=== PATIENT | female | born 1940 | race African-American/Black ===

== ENCOUNTER 2017-01-06 05:41 | Day surgery (SDC) | payer MEDICARE, OTHER ==
[~2017-01-06] VITALS: Ht 172.7 cm; Wt 114.3 kg
[2017-01-06] MEDS ORDERED: LACTATED RINGERS 1,000 ML IV SCH (06:40)
[2017-01-06 06:59] LABS: BASOPHILS % 0.4 % (0.0-2.0); EOSINOPHILS % 0.8 % (0.0-5.0); HEMATOCRIT. 39.9 % (36.0-48.0); HEMOGLOBIN. 13.4 g/dL (12.0-16.0); LYMPHOCYTES % 43.1 % (20.0-50.0); MEAN CORPUSCULAR HEMOGLOBIN 29.8 pg (28.0-32.0); MEAN CORPUSCULAR VOLUME 88.9 fL (81.0-99.0); MEAN PLATELET VOLUME 7.6 fl (7.4-10.4); MONOCYTES % 8.1 % (2.0-8.0); NEUTROPHILS % 47.6 % (40.0-76.0); PLATELET 292 x1000/uL (130-400); RED BLOOD CELL COUNT 4.48 mill/uL (4.2-5.4); RED CELL DISTRIBUTION WIDTH 14.4 % (11.6-14.6)
[2017-01-06 07:06] LABS: CARBON DIOXIDE 29 mEq/L (21-32); CHLORIDE 102 mEq/L (98-107)
[2017-01-06] MEDS ORDERED: MIDAZOLAM HCL 2 MG/2 ML VIAL ONE (07:30)
[2017-01-06] MEDS ORDERED: FENTANYL CITRATE/PF 50MCG/ML 2ML VIAL ONE (07:30)
[2017-01-06] MEDS ORDERED: LIDOCAINE HCL 1% 20ML VIAL (Pyxis) INJ ONE (08:01)
[2017-01-06] MEDS ORDERED: ONDANSETRON HCL 4MG/2ML VIAL ONE (08:01)
[2017-01-06] MEDS ORDERED: DEXAMETHASONE 4MG/ML 1ML VIAL ONE (08:01)
[2017-01-06] MEDS ORDERED: PROPOFOL 200MG/20ML VIAL IV ONE (08:01)
[2017-01-06] MEDS ORDERED: LABETALOL HCL 20MG/4ML CARPUJECT IV PRN (08:15)
[2017-01-06] MEDS ORDERED: ONDANSETRON HCL 4MG/2ML VIAL IV PRN (08:15)
[2017-01-06] MEDS ORDERED: MEPERIDINE HCL/PF 25MG/ML CPJ IV PRN (08:15)
[2017-01-06] MEDS ORDERED: HYDROMORPHONE HCL/PF 2MG/ML CPJ IV PRN (08:15)
[2017-01-06] MEDS ORDERED: MULT-1146 PO (08:31)
[2017-01-06] MEDS ORDERED: METO25TA6 PO (08:31)
[2017-01-06] MEDS ORDERED: UBID30CA10 PO (08:31)
[2017-01-06] MEDS ORDERED: AMLO2.5T45 PO (08:31)
[2017-01-06] MEDS ORDERED: ASPI-1159 PO (08:31)
[2017-01-06] MEDS ORDERED: VIT500LI PO (08:31)
[2017-01-06] MEDS ORDERED: GARL200T PO (08:31)
[2017-01-06] MEDS ORDERED: CHOL400T15 PO (08:31)
[2017-01-06] MEDS ORDERED: ACETAMINOPHEN 650MG/20.3ML UDC PEG PRN (09:00)
== END 2017-01-06 10:25 | disposition home or self-care (01) ==
LOC: OR 05:41
PROVIDERS: ATTEND Obstetrics & Gynecology Obstetrics
DX: C54.1 Malignant neoplasm of endometrium (principal); Z88.0 Allergy status to penicillin; Z78.0 Asymptomatic menopausal state; Z88.1 Allergy status to other antibiotic agents; Z98.890 Other specified postprocedural states; Z80.9 Family history of malignant neoplasm, unspecified; I83.90 Asymptomatic varicose veins of unspecified lower extremity; R26.2 Difficulty in walking, not elsewhere classified; E66.01 Morbid (severe) obesity due to excess calories; I10 Essential (primary) hypertension; G51.0 Bell's palsy; J45.909 Unspecified asthma, uncomplicated
CPT/HCPCS: 36415; 58558; 80048; 85025; 88305; 93005; J1100; J2250; J2405; J3010; J3490; J7120; J2704

== ENCOUNTER 2020-05-31 20:57 | Inpatient (IN) | payer MEDICARE, MEDICAID ==
[~2020-05-31] VITALS: Ht 172.7 cm; Wt 113.6 kg
[~2020-05-31 20:57] MED LIST: AMLO2.5T45 PO; ASPI-1497 PO; CHOL400T15 PO; GARL200T PO; METO25TA6 PO; MULT-1146 PO; UBID30CA10 PO; VIT500LI PO
[2020-05-31] MEDS ORDERED: MORPHINE SULFATE 4 MG/ML CPJ (NOT FOR IM USE) IV PRN (23:30)
[2020-06-01 00:02] LABS: BASOPHILS % 0.4 % (0.0-2.0); EOSINOPHILS % 0.2 % (0.0-5.0); HEMATOCRIT. 38.3 % (36.0-48.0); HEMOGLOBIN. 12.9 g/dL (12.0-16.0); LYMPHOCYTES % 8.9 % (20.0-50.0); MEAN CORPUSCULAR HEMOGLOBIN 30.7 pg (28.0-32.0); MEAN CORPUSCULAR VOLUME 90.8 fL (81.0-99.0); MEAN PLATELET VOLUME 7.6 fl (7.4-10.4); MONOCYTES % 5.5 % (2.0-8.0); PLATELET 222 x1000/uL (130-400); RED BLOOD CELL COUNT 4.22 mill/uL (4.2-5.4); RED CELL DISTRIBUTION WIDTH 14.9 % (11.6-14.6)
[2020-06-01 00:08] LABS: CHLORIDE 103 mEq/L (98-107)
[2020-06-01 00:10] LABS: PROTHROMBIN TIME 10.6 sec (9.6-11.0)
[2020-06-01] MEDS ORDERED: KETOROLAC 15MG/ML VIAL IV ONE (01:30)
[2020-06-01] MEDS: TRAMADOL 50MG TABLET PO PRN ×2 (06:29→13:19)
[2020-06-01] MEDS ORDERED: CLONIDINE 0.1MG TABLET PO PRN (08:45)
[2020-06-01] MEDS ORDERED: GUAIFENESIN 200MG/10ML SUGAR FREE UDC PO PRN (08:45)
[2020-06-01] MEDS ORDERED: MAGNESIUM/ALUMINUM HYDROXIDE/SIMETHICONE 30ML UDC PO PRN (08:45)
[2020-06-01] MEDS ORDERED: DIPHENHYDRAMINE 50MG/ML VIAL IV PRN (08:45)
[2020-06-01] MEDS ORDERED: LORAZEPAM 2MG/ML CPJ IV PRN (08:45)
[2020-06-01] MEDS ORDERED: ONDANSETRON HCL 4MG/2ML INJ IV PRN (08:45)
[2020-06-01] MEDS ORDERED: ENOXAPARIN 40MG/0.4ML SYR SUBCUT SCH (08:45)
[2020-06-01] MEDS ORDERED: ACETAMINOPHEN 325MG TABLET PO PRN (08:45)
[2020-06-01] MEDS ORDERED: IPRATROPIUM/ALBUTEROL 0.5-3(2.5)MG/3ML NEB NEB PRN (08:45)
[2020-06-01] MEDS ORDERED: DOCUSATE SODIUM 100MG CAPSULE PO PRN (08:45)
[2020-06-01] MEDS ORDERED: HYDROMORPHONE HCL/PF 2MG/ML CPJ IV PRN (08:45)
[2020-06-01] MEDS ORDERED: DEXT 5%/0.45% NACL 1000ML 1,000 ML IV SCH (09:00)
[2020-06-01] MEDS ORDERED: NA PHOS,M-B/NA PHOS,DI-BA ENEMA 118ML PR PRN (09:00)
[2020-06-01 11:30] VITALS: BP 138/67
[2020-06-01 12:00] VITALS: BP 138/67
[2020-06-01] MEDS: HYDRALAZINE HCL 50MG TABLET PO SCH (13:11)
[2020-06-01] MEDS: ENOXAPARIN 30MG/0.3ML SYR SUBCUT SCH ×2 (13:13→21:55)
[2020-06-01] MEDS ORDERED: ALBUTEROL (0.083%) 2.5MG/3ML NEB HHN SCH (14:00)
[2020-06-01 16:00] VITALS: BP 134/59
[2020-06-01] MEDS ORDERED: ALBUTEROL 6.7GM HFA INHALER ORI ONE (17:00)
[2020-06-01 17:22] LABS: CHLORIDE 102 mEq/L (98-107)
[2020-06-01 20:00] VITALS: BP 144/63
[2020-06-01] MEDS: DEXT 5%/0.45% NACL 1000ML 1,000 ML IV SCH (23:14)
[2020-06-02] VITALS: BP 125/62
[2020-06-02] MEDS: TRAMADOL 50MG TABLET PO PRN (01:15)
[2020-06-02 04:00] VITALS: BP 129/56
[2020-06-02 06:25] LABS: BASOPHILS % 0.4 % (0.0-2.0); EOSINOPHILS % 0.4 % (0.0-5.0); HEMATOCRIT. 32.5 % (36.0-48.0); LYMPHOCYTES % 21.7 % (20.0-50.0); MEAN CORPUSCULAR HEMOGLOBIN 31.2 pg (28.0-32.0); MEAN CORPUSCULAR VOLUME 92.4 fL (81.0-99.0); MEAN PLATELET VOLUME 7.6 fl (7.4-10.4); MONOCYTES % 10.5 % (2.0-8.0); PLATELET 205 x1000/uL (130-400); RED BLOOD CELL COUNT 3.51 mill/uL (4.2-5.4); RED CELL DISTRIBUTION WIDTH 14.7 % (11.6-14.6)
[2020-06-02 06:44] LABS: CHLORIDE 101 mEq/L (98-107)
[2020-06-02 06:51] LABS: LDL CHOLESTEROL 60 mg/dL (5-100)
[2020-06-02 06:52] LABS: HDL CHOLESTEROL 68 mg/dL (40-59)
[2020-06-02 06:53] LABS: T4 FREE 1.15 ng/dL (0.76-1.46)
[2020-06-02] MEDS ORDERED: VANCOMYCIN HCL 1 GM/VIAL ONE (07:29)
[2020-06-02] MEDS ORDERED: BUPIVACAINE HCL/PF 0.25% (2.5MG/ML) 10ML ONE (07:29)
[2020-06-02] MEDS ORDERED: HYDROMORPHONE HCL/PF 2MG/ML (OR) ONE (07:45)
[2020-06-02] MEDS ORDERED: GLYCOPYRROLATE 0.2 MG/ML 2ML VIAL ONE (07:51)
[2020-06-02] MEDS ORDERED: DEXAMETHASONE 4MG/ML 1ML VIAL ONE (08:13)
[2020-06-02] MEDS ORDERED: CEFAZOLIN SODIUM 1000MG/VIAL ONE (08:13)
[2020-06-02] MEDS ORDERED: EPHEDRINE SULFATE 50MG/ML VIAL ONE (08:37)
[2020-06-02] MEDS: ENOXAPARIN 30MG/0.3ML SYR SUBCUT SCH ×2 (09:00→20:56)
[2020-06-02] MEDS: HYDRALAZINE HCL 50MG TABLET PO SCH (09:00)
[2020-06-02] MEDS ORDERED: ONDANSETRON HCL 4MG/2ML INJ IV PRN (09:45)
[2020-06-02] MEDS ORDERED: MEPERIDINE HCL/PF 25MG/ML CPJ IV PRN (09:45)
[2020-06-02] MEDS ORDERED: CEFAZOLIN 2,000 MG in DEXT 5% WATER 100 ML IV SCH (09:45)
[2020-06-02] MEDS ORDERED: HYDROMORPHONE HCL/PF 2MG/ML CPJ IV PRN (09:45)
[2020-06-02] MEDS ORDERED: LABETALOL 5MG/ML SYR 20 MG/4 ML SYRINGE IV PRN (09:45)
[2020-06-02] MEDS ORDERED: HYDROCODONE/ACETAMINOPHEN 10/325MG TABLET PO PRN (14:23)
[2020-06-02] MEDS: CEFAZOLIN 2,000 MG in DEXT 5% WATER 100 ML IV SCH ×2 (16:30→23:28)
[2020-06-02] MEDS: DEXT 5%/0.45% NACL 1000ML 1,000 ML IV SCH ×2 (16:54→22:50)
[2020-06-02 20:00] VITALS: BP 133/62
[2020-06-03] VITALS: BP 130/60
[2020-06-03 04:00] VITALS: BP 126/48
[2020-06-03 08:00] VITALS: BP 132/46
[2020-06-03] MEDS: HYDRALAZINE HCL 50MG TABLET PO SCH (10:17)
[2020-06-03] MEDS: TRAMADOL 50MG TABLET PO PRN (10:20)
[2020-06-03] MEDS: ENOXAPARIN 30MG/0.3ML SYR SUBCUT SCH ×2 (10:21→21:12)
[2020-06-03] MEDS: CEFAZOLIN 2,000 MG in DEXT 5% WATER 100 ML IV SCH (10:21)
[2020-06-03 11:52] VITALS: BP 121/51
[2020-06-03 15:52] VITALS: BP 130/52
[2020-06-03 20:00] VITALS: BP 122/48
[2020-06-04] MEDS: DEXT 5%/0.45% NACL 1000ML 1,000 ML IV SCH ×2 (01:51→18:40)
[2020-06-04] MEDS: TRAMADOL 50MG TABLET PO PRN ×3 (03:35→17:37)
[2020-06-04 08:00] VITALS: BP 119/46
[2020-06-04] MEDS: ENOXAPARIN 30MG/0.3ML SYR SUBCUT SCH ×2 (08:56→21:17)
[2020-06-04] MEDS: HYDRALAZINE HCL 50MG TABLET PO SCH (08:56)
[2020-06-04 12:00] VITALS: BP_SYST 107; BP_SYST 130; BP_DIAS 54; BP_DIAS 59
[2020-06-04 16:00] VITALS: BP 130/46
[2020-06-04 20:00] VITALS: BP 141/56
[2020-06-05 08:00] VITALS: BP 143/37
[2020-06-05] MEDS: HYDRALAZINE HCL 50MG TABLET PO SCH (08:42)
[2020-06-05] MEDS: TRAMADOL 50MG TABLET PO PRN (08:43)
[2020-06-05] MEDS: ENOXAPARIN 30MG/0.3ML SYR SUBCUT SCH (08:44)
[2020-06-05] MEDS: DEXT 5%/0.45% NACL 1000ML 1,000 ML IV SCH (11:20)
[2020-06-05 15:29] VITALS: BP 131/47
[2020-06-05 16:00] VITALS: BP 111/52
== END 2020-06-05 16:40 | DRG 480 ==
LOC: ER 20:57 → ENRESERV 06-01 07:30 → 4WST 06-01 11:23
PROVIDERS: ADMIT Internal Medicine; ATTEND Internal Medicine
PROC: 0QS604Z Reposition Right Upper Femur with Internal Fixation Device, Open Approach (ICD-10-PCS; principal; 2020-06-02)
DX: S72.141A Displaced intertrochanteric fracture of right femur, initial encounter for closed fracture (principal); G93.41 Metabolic encephalopathy; E46 Unspecified protein-calorie malnutrition; W01.0XXA Fall on same level from slipping, tripping and stumbling without subsequent striking against object, initial encounter; E78.5 Hyperlipidemia, unspecified; I10 Essential (primary) hypertension; J45.909 Unspecified asthma, uncomplicated; M19.90 Unspecified osteoarthritis, unspecified site; Y93.89 Activity, other specified; Y92.89 Other specified places as the place of occurrence of the external cause; Y99.8 Other external cause status; Z88.5 Allergy status to narcotic agent; Z88.0 Allergy status to penicillin; Z88.8 Allergy status to other drugs, medicaments and biological substances; Z91.041 Radiographic dye allergy status; Z79.82 Long term (current) use of aspirin; Z79.899 Other long term (current) drug therapy; Z68.38 Body mass index [BMI] 38.0-38.9, adult
CPT/HCPCS: 36415; 71045; 73502; 76000; 80048; 80053; 80061; 82962; 84439; 84443; 84484; 85025; 86850; 86900; 87426; 93005; 97162; 97166; 97530; 97535; 99285; A6261; C1713; J0690; J1100; J1170; J1650; J1885; J2270; J3370; J3490; J7040; J7060; J7070